=== PATIENT | female | born 1970 | race Caucasian/White ===

== ENCOUNTER 2017-04-27 10:04 | Inpatient (IN) | payer BC, SELFPAY ==
[~2017-04-27] VITALS: Ht 180.3 cm; Wt 154.7 kg
[~2017-04-27 10:04] MED LIST: CYCLOBENZAPRINE10 MG PO; HYDROCHLOROTHIA25 MG PO; INDOMETHACIN25 MG PO; PRAMIPEXOLE DIHY1 MG PO; TRAMADOL HCL50 MG PO; VALIUM5 MG PO
--- NOTE | 2017-04-27 17:38 | NUR ---
PT ARRIVED ON THE FLOOR FROM ER VIA STRETCHER. O2 IN PLACE AT 4L. TELE #3 PLACED, SINUS TACHY. PT AMBULATED TO BATHROOM. CONT PULSE OX. NO SKIN ISSUES NOTED. PT REPORTS PAIN IN LEFT HAND IV. PULSE OX INDICATES TACHY HR IN 130. BP 162/88. CALLED DR CHESTER, WHO WILL LOOK AT HOME MEDS AND REORDER.
--- NOTE | 2017-04-27 17:56 | NUR ---
CALLED, PT REQUESTING BREATHING TREATMENT. SAID "I WILL PUT THE ORDERS IN." RESPIRATORY THERAPY CALLED TO NOTIFY NOLA THAT PT AND RN WOULD LIKE HER TO HAVE A NEBULIZER TREATMENT SOON AVAILABLE
--- NOTE | 2017-04-27 19:02 | NUR ---
CALLED DR CHESTER D/T SUSTAINED HR OF 135-140. HOME HCTZ GIVEN. TYLENOL GIVEN FOR PAIN. O2 AT 4L TO KEEP O2 .90%. PT REPORTS CHRONIC BACK PAIN, TAKES TYLENOL AT HOME. PLAN OF CARE: MONITOR, DOES NOT WANT TO ADD A BETA CAROLA. IF PT DEVELOPS A FEVER GIVE TYLENOL. IF PAIN NOT RELIEVED BY TYLENOL, CALL DR CHESTER.
--- NOTE | 2017-04-27 20:11 | NUR ---
PT LAYING IN BED. TACHYPNEIC. PT O2 SAT STAYING AT 88% ON 4L VIA NC, PT SEEMS TO BE MOUTH BREATHING, PLACED ON OXYMASK, SATS WENT UP TO 93% CONSISTANTLY. HR NOW LOW 120'S. IV INFUSING WNL. PT RATES PAIN IN HER BACK AT 7/10, TYLENOL GIVEN EARLIER FOR PAIN, WILL GET PT KPACK FOR BETTER PAIN CONTROL. GAVE FRESH ICE WATER. ORIENTED TO CALL LIGHT. CALL LIGHT IN REACH. NO FURTHER NEEDS.
--- NOTE | 2017-04-27 20:37 | NUR ---
VITALS AND I&OS DONE AND CHARTED. HELPED PT TO THE BEDSIDE COMMODE AND TO THE CHAIR PER HER REQUEST. SHE SAYS THE BED IS HURTING HER. FRESH WATER GIVEN. PT NEEDS NOTHING ELSE AT THIS TIME.
--- NOTE | 2017-04-27 23:10 | NUR ---
PT SITTING UP IN CHAIR. BACK TO BED, STANDBY ASSIST, TOLERATED WELL. GAVE PUDDING PER PT REQUEST. NO FURTHER NEEDS AT THIS TIME. CALL LIGHT IN REACH.
--- NOTE | 2017-04-28 01:16 | NUR ---
PT APPEARS TO BE SLEEPING. HR 93, O2 SAT 92% ON 4L OXYMASK.
--- NOTE | 2017-04-28 01:44 | NUR ---
VITALS AND I&OS DONE AND CHARTED. HELPED PT TO THE BEDSIDE COMMODEAND BACK TO BED. PER PT REQUEST I CALLEDE ORLY TO GIVE HER A BREATHING TREATMENT. BEDSIDE TABLE AND CALL LIGHT WITHIN REACH. SHE NEEDS NOTHING ELSE AT THIS TIME.
--- NOTE | 2017-04-28 03:00 | NUR ---
PT AWAKE, LAYING IN BED, WATCHING TV. NO DISTRESS. NO COMPLAINTS. O2 SAT 93% ON 5L VIA OXYMASK. HR 100.
--- NOTE | 2017-04-28 06:46 | EKG ---
[facility] [address] [place] [id number] Signed Sinus tachycardia Rightward axis Low voltage QRS Borderline ECG No previous ECGs available Confirmed by XI CHESTER MD ([id number]) on 04/28/2017 6:46:21 AM Electronically Signed By: XI CHESTER MD 04/28/17 0646 PATIENT NAME: MICHELLE GHOTRA LISA Electrocardiogram DATE OF : 70 PHYSICIAN: XI CHESTER MD REPORT #: [id number] REPORT IS CONFIDENTIAL AND NOT TO BE RELEASED WITHOUT AUTHORIZATION
--- NOTE | 2017-04-28 07:48 | NUR ---
PATIENT IN BED EATING BREAKFAST. THIS PEDIATRIC GENETICIST BROUGHT APPLE JUICE. CALL LIGHT WITHIN REACH. NO OTHER NEEDS AT THIS TIME.
--- NOTE | 2017-04-28 08:09 | NUR ---
MORNING ASESMENT AND MEDICATIONS DUE. PT UP FINSIHING WITH BREAKFAST. O2 SATURATION NOTED TO BE AT 86%. PT HAS NC AT 6L RUNNING. OXY MASK REPLACED, 6L OS RUNNING. PT REQUESTS TO GET UP TO COMODE AND SIT IN CHAIR. PT PRE OXYGENATED AT 6L AND ACHIEVES 94%. PT DESTATS TO 80% DURING MOVEMENT. O2 INCREASED TO 10L BY OXYMASK. PT WEANED BACK TO 5L O2 AND IS MAINTAINING AT 90-92%. ASSESSMENT DONE. MEDICATIONS GIVEN. IV INFUSING LEVOFLOXACIN VIA IV PUMP. PT UP TO CHAIR. FEET ELEVATED. WARM BLANKET AND PILLOW PROVIDED FOR BACK. PT WATCHING TV. AND STATES NO ADDITIONAL REQUESTS OR COMPLAINTS AT THIS TIME.
--- NOTE | 2017-04-28 09:15 | NUR ---
IV ABX ARRIVED FROM PHARMACY. THIS RN TO ROOM TO GIVEN ABX. PT UP TO CHAIR. OCCATIONAL COUGHS NOTED. PT REQEUSTS A BREATHING TREATMENT. RT CALLED. BREATHING TREATMENT PULLED AND AT BEDSIDE FOR RT TO GIVE. ABX INFUSING VIA IV PUMP. PT STATE NO ADDITIONAL REQUESTS OR COMPLAINTS AT THIS TIME. CALL LIGTH WITHIN REACH.
--- NOTE | 2017-04-28 10:00 | NUR ---
STUDENT RN IN ROOM TO ASSIST WITH PATIENTS VITALS. STUDENT NURSE STATES SHE WILL ASSIST PAIENT WITH ORAL CARE AND WASHING HANDS AND FACE. STUDENT STATES THAT SHE WILL ASK PATIENT IF SHE WOULD LIKE TO HAVE A SHOWER OR BATH.
--- NOTE | 2017-04-28 10:13 | NUR ---
PATIENT RESTING IN CHAIR. CALL LIGHT WITHIN REACH. FRESH ICE WATER. PATIENT STATES THAT SHE IS UNCOMFORTABLE, BUT SAYS SHE HAS BEEN FOR A COUPLE DAYS. STUDENT NURSE IN ROOM. STUDENT NURSE STATED THAT SHE CHANGED THE LINEN. NO OTHER NEEDS AT THIS TIME.
--- NOTE | 2017-04-28 10:35 | NUR ---
THIS RN CALLED TO BEDSIDE BECAUSE POT HOLDER BINDER STATES "THE IV IS BAD." THIS RN NOTES THE INFUSION HAS BEEN STOPPED. PIV ASSESSED, INFILTRATION NOTED. PIV DC'D PER PROTOCOL. NEW IV STARTED PER PROTOCOL IN RIGHT FORARM. BRISK BLOOD RETURN NOTED WITH IV START. LINE INFUSING THE REMAINDER OF ABX INFUSION IV FLUIDS TO FOLLOW. PT REMAINS ON 7L O2 PER RT INTERVENTION. PT DENIES NEED FOR NICOTINE LOSENGE AT TIME AND STATES "THE RESTLESSNESS IS GETTING BETTER." PT WORKIGN ON PHONE RESTING IN CHAIR. PT WORKING ON PHONE. NO ADDITIONAL REQUESTS OR COMPLAINTS AT THIS TIME.
--- NOTE | 2017-04-28 11:17 | NUR ---
FOCUSSED ASSESSMENT DUE. PT UP IN CHAIR AND REPORTS "FEELING LIKE I AM BREATHIGN BETTER." PT REMAINS ON 7L O2 WITH 92% O2. PT REQUESTS VANILLA WAFFERS TO SNACK ON. ORDER CALLED TO CAFETERIA. FOCUSSED ASSESSMENT DONE. PT REPORTS ONGOING PAIN IN BACK BUT STATES "ITS TOLERABLE FOR NOW AND I DON'T NEED ANYTHING FOR IT." PT WATCHING TV WITH CALL LIGHT WITHIN REACH. WATER REFILLED. PT HAS NO ADDITIONAL REQUESTS OR COMPLAINTS AT THIS TIME.
--- NOTE | 2017-04-28 12:21 | NUR ---
THIS RN TO BEDSIDE TO REPLACE OXY MASK AFTER LUNCH. PT RESTING WITH EYES CLOSED, RR=20, O2 SATURATION NOTED TO BE 99%. PT AWAKENS TO VOICE. PT STATES SHE WOULD LIKE TO REMAIN ON THE NC IF POSSIBLE. PT LEFT WEANED. TO 6 L O2 NC. PT REMAINS AT 99% O2. PT RESTING IN CHAIR. FEET ELEVATED. CALL LIGHT WITIN REACH.
--- NOTE | 2017-04-28 12:48 | NUR ---
PATIENT RESTING IN BED WITH EYES CLOSED. PATIENT APPEARS TO BE SLEEPING. NO OTHER NEEDS AT THIS TIME.
--- NOTE | 2017-04-28 12:50 | NUR ---
PATIENT RESTING IN CHAIR WITH EYES CLOSED. PATIENT APPEARS TO BE SLEEPING. NO OTHER NEEDS AT THIS TIME.
--- NOTE | 2017-04-28 14:07 | NUR ---
PT SITTING IN CHAIR, RT IN GIVING BREATHING TREATMENT. PT MOTIONED ME IN, SAID AMARIS. STAYED JUST A MOMENT, WILL LET HER FINISH TREATMENT. EXTENDED A BLESSING, SHE THANKED ME, WILL FOLLOW NEEDED
--- NOTE | 2017-04-28 14:30 | NUR ---
PATIENT IS UP TO CHAIR, HUMIDIFICATION MASK IS ON, PER RT. SATURATIONS ARE 99 AND 100% AND PATIENT IS TOLERATEING WELL. HEAT PACK TO LOWER BACK.
--- NOTE | 2017-04-28 14:37 | NUR ---
PATIENT IS RESTING IN CHAIR. PATIENT STATES THAT SINCE SHE HAS HAD THE TENT MASK SHE FEELS MORE COMFORTABLE THAT PREVIOUSLY. PATIENTS FAMILY IN ROOM. RN IN ROOM. CALL LIGHT WITHIN REACH. NO OTHER NEEDS AT THIS TIME.
--- NOTE | 2017-04-28 15:02 | NUR ---
SET PATIENT UP FOR A BED BATH. PATIENTS DAUGHTER IS ASSISTING WITH BED BATH.
--- NOTE | 2017-04-28 15:51 | NUR ---
pump alarming "distal occlusion." piv assessed, wnl. BED RAILS UP. CALL LIGHT WITHIN REACH. PT VISITING WITH FRIENDS.
--- NOTE | 2017-04-28 17:08 | NUR ---
RN IN ROOM ASSISTING PATIENT. NO OTHER NEEDS AT THIS TIME.
--- NOTE | 2017-04-28 17:15 | NUR ---
AFTERNOON ASSESSEMENT DUE. PT UP WITH RN TO REST ROOM. OXYGEN OFF. OXYGEN REAPPLIED BY THIS RN. DINNER ARRIVED. ASSESSMENT DONE. MEDICATION GIVEN ORDERED (SEE MAR). PT SITTING ON EDGE OF BED EATING DINNER. O2 ON BY NC AT 6L. PT MAINTAINING O2 SATURATIONS ABOVE 92%. CALL LIGHT WITHIN REACH. FAMILY AT BEDSIDE.
--- NOTE | 2017-04-28 17:34 | NUR ---
PT HERE FOR PNUEMONA. STAND BY ASSIST. REGULAR DIET. GOOD INTAKE TODAY. PIV INFUSING NS AT 125ML/HR. PT REQUESTS PRN ALBUTEROL NEBS. RT CONSULT TODAY. RT INVOLVED WITH THERAPY. PT ON TELLY #3, NORMAL SINUS/ SINUS TACH TODAY. 6L O2 BY NC TODAY WEANED TO NC OFF OF OXY MASK. IV ABX ORDERED. PT DENIES NEED FOR PAIN MEDICATION OR NIOCTENE LOZENGE. GOOD USE OF CALL LIGHT.
--- NOTE | 2017-04-28 18:37 | NUR ---
PATIENT RESTING IN BED WATCHING TV. PATIENTS FAMILY MEMBER IN ROOM. PATIENT STATES THAT DINNER WAS NOT VERY GOOD AND SHE ORDERED A SANDWICH WHICH ARRIVED. PATIENT STATES THAT SHE IS STILL VERY COMFORTABLE AND NOT HAVING ANY BREATHING PROBLEMS OR FEELING DIZZY. FRESH ICE WATER. CALL LIGHT WITHIN REACH. NO OTHER NEEDS AT THIS TIME.
--- NOTE | 2017-04-28 19:46 | NUR ---
RECEIVED REPORT FROM DAY SHIFT RN. PATIENT IS RESTING IN BED WATCHING TV. PATIENT DENIES NAY NEEDS AT THIS TIME. CALL LIGHT IN REACH.
--- NOTE | 2017-04-28 21:02 | NUR ---
PATIENT ASSESMENT COMPLETED. PATIENTS EVENING MEDICATIONS GIVEN PER ORDER. PATIENT IS RESTING IN BED. PATIENT DENIES ANY PAIN. PATIENT DENIES ANY PAIN AT THIS TIME. PATIENT DENIES ANY SOB. PATIENT REMAINS ON 6L VIA NC. PATIENTS PULSE OX READINGS ARE WNL. PATIENTS ICE WATER REFILLED PER ORDER. PATIENT DENIES ANY FURTHER NEEDS AT THIS TIME. CALL LIGHT IN REACH.
--- NOTE | 2017-04-28 21:41 | NUR ---
REPLACED TELE LEAD ON PT. TURNED DOWN HEAT PER PT REQUEST. PT HAS NO FURTHER NEEDS AT THIS TIME. CALL LIGHT IN REACH.
--- NOTE | 2017-04-28 23:19 | NUR ---
PATIENT IS RESTING IN BED WITH EYES CLOSED. PATIENT PULSE OX READINGS ARE WNL. PATIENTS OXYGEN SATURATION IS 97%. PATIENT TITRATED DOWN TO 5L VIA NC. CALL LIGHT IN REACH.
--- NOTE | 2017-04-29 00:18 | NUR ---
PATIENTS PULSE OX WAS ALARMING. PATIENTS LEAD HAD FALLEN OFF OF HER FOREHEAD. PATIENTS LEAD REPLACED FOR PULSE OX. PATIENT REMAINS AT 94% ON 5L VIA NC. PATIENT DENIES ANY NEEDS AT THIS TIME. CALL LIGHT IN REACH.
--- NOTE | 2017-04-29 02:17 | NUR ---
PATIENT CALLED TO USE THE BATHROOM 1 PA STANDBY. PATIENT IS BACK IN BED. ICE WATER REFILLED. LIKES THE DOOR SHUT. NO OTHER NEEDS. CALL BUTTON WITHIN REACH.
--- NOTE | 2017-04-29 04:16 | NUR ---
PATIENT IS RESTING IN BED WITH EYES CLOSED. PATIENT REMAINS ON 5L VIA NC. PULSE OX READINGS ARE WNL. CALL LIGHT IN REACH.
--- NOTE | 2017-04-29 05:03 | NUR ---
PATIENT RESTED WELL THROUGHOUT THE SHIFT. PATIENT IS SL AND IV FLUSHES WELL. PATIENT HAS PULSE OX IN PLACE. PATIENT IS A SBA. PATIENT IS ON A REG DIET AND IS TOLERATING IT WELL. PAITENT IS ON 5L VIA NC. PATIENT IS ON TELE #3, SR. PATIENT RECEIVEING PRN NEBS. PATIENT IS AAOX3 AND USES CALL LIGHT APPROPRIATELY.
--- NOTE | 2017-04-29 05:39 | NUR ---
PATIENT IS RESTING IN BED. PATIENT IS CURRENTLY ON 5L VIA NC. PATIENTS PULSE OX READINGS ARE WNL. PATIENT DENIES ANY SOB. PATIENT DENIES ANY NEEDS AT THIS TIME. CALL LIGHT IN REACH.
--- NOTE | 2017-04-29 06:39 | NUR ---
PATIENT RECEIVED PRN TYELNOL FOR A HERNANDEZ. PATIENT IS ALSO REQUESTING A NEB TREATMENT. PLACED CALL TO RT.
--- NOTE | 2017-04-29 06:52 | NUR ---
RT IN RROM ADMINISTERING PRN NEB. PATIENT WAS TALKING ON THE PHONE WHEN THE ROOM WAS ENTERED. NO NEEDS NOTED. CALL LIGHT IN REACH.
--- NOTE | 2017-04-29 08:26 | NUR ---
PATIENT RESTING IN BED WATCHING TV. FRESH ICE WATER. CALL LIGHT WITHIN REACH. NO OTHER NEEDS AT THIS TIME.
--- NOTE | 2017-04-29 08:45 | NUR ---
PATIENT SITTING UP IN BED WATCHING TV. ORAL CARE DONE. THIS SHRINK PIT OPERATOR TALKED TO PATIENT ABOUT POSSIBLY SHOWERING THIS AFTERNOON WHEN HER DAUGHTER IS HERE TO ASSIST HER. PATIENT STATES THAT SHE IS FEELING BETTER THEN YESTERDAY. CALL BUTTON IN REACH. NO OTHER NEEDS AT THIS TIME.
[2017-04-29] MEDS ORDERED: VENTOLIN HFA18 GM INH (08:58)
[2017-04-29] MEDS ORDERED: CHANTIX1 EACH PO (09:00)
--- NOTE | 2017-04-29 09:40 | NUR ---
MORNING ASSESSMENT AND MEDICATIONS DUE. PT UP IN BED, FINISHED WITH BREAKFAST AND WATCHING TV. PT STATES "I CAN BREATH BETTER TODAY." O2 ON 5L NC. WEANED TO 4L NC. THIS RN MONITORS AND PT MAINTAINS BETWEEN 94% AND 97%. PT LEFT ON 4L NC. PIV ASSESSED AND INFILTRATION NOTED. NEW PIV STARTED PER PROTOCOL IN LEFT AC. INFUSING ABX VIA IV PUMP (SEE MAR). ASSESSEMENT DONE. MEDICAITONS GIVEN (SEE MAR). PT TALKING ON PHONE AND WATCHING TV. PT DENIES ADDITIONAL REQUESTS OR COMPLAINTS AT THIS TIME. BED RAILS UP. CALL LIGHT WITHIN REACH.
[2017-04-29] MEDS ORDERED: INDOMETHACIN50 MG PO (10:00)
[2017-04-29] MEDS ORDERED: MULTIVITAMINS1 EAC8 PO (10:01)
[2017-04-29] MEDS ORDERED: MUCOSA400 MG PO (10:01)
--- NOTE | 2017-04-29 10:02 | NUR ---
MED REC COMPLETE
--- NOTE | 2017-04-29 10:15 | NUR ---
THIS RN TO BEDSIDE TO CHECK ON PT. PT RETURNING FROM WORK WITH PT. PT BACK TO CHAIR. PT REPORTS 7/10 IMPROVING PAIN. PT DENIES NAUSEA AND REPORTS ITCHING IS IMPROVING. CRYO CUFF IN PLACE. PT READING. CALL LIGHT WITHIN REACH.
--- NOTE | 2017-04-29 10:18 | NUR ---
INTO PATIENT ROOM TO ROUND AND ASSESS PATIENT, MD DISCUSSED PLAN OF CARE.
--- NOTE | 2017-04-29 10:30 | NUR ---
PATIENT RESTING IN BED. FRESH ICE WATER. CALL LIGHT WITHIN REACH. NO OTHER NEEDS AT THIS TIME.
--- NOTE | 2017-04-29 11:00 | NUR ---
NEW MEDICATION ORDERS. MEDICATIONS GIVEN ORDERED (SEE MAR). SIDE EFFECTS AND NEW MEDICATIONS EXPLAINTED TO PT. PIV INFUSING NS AT TKO. ABX FINISHED INFUSING. SPUTEUM CUP GIVEN TO PT WITH DIRECTIONS TO SPIT HER COUGH PHLEM INTO CUP AND NOTIFY RN. PT VERBALIZES UNDERSTANDING WORKING ON TABLET AND WATCHING TV. PT STATES IMPROVED HEADACHE AND BACK PAIN NOW AT 0/10. PT STATES NO REQUESTS OR COMPLAINTS AT THIS TIME. BED RAILS UP. CALL LIGHT WITHIN REACH.
--- NOTE | 2017-04-29 12:20 | NUR ---
THIS RN TO BEDSIDE FOR FOCUSED ASSESSMENT. PT COUGHING ON AND OFF. HAS MAINTAINED O2 SATURATION ABOE 94% ALL MORNING. PT WEANED TO 3 L O2 WHILE THIS RN STAYS IN ROOM. PT MAINTAING O2 SATURATIONS ABOVE 94%. PT LEFT ON 3 L. FOCUSSSED ASSESSMENT DONE. PT STATES NO REQUESTS OR COMPLAINTS AT THIS TIME. PT ADVISED TO GET UP TO CHAIR TODAY. PT DECLINES STATING "I'M JUST SO COMFORTABLE WHERE I AM." PT WATCHING TV. BED RAILS UP. CALL LIGHT WITHIN REACH.
--- NOTE | 2017-04-29 13:17 | NUR ---
PT RESTING IN BE, OXYGEN ON 3L N.C., OXYGEN SATURATION PER CONTINUOUS PULSE OXIMETRY IS 92% AT THIS TIME. NO DISTRESS NOTED, RESPIRATORY THERAPIST IN ROOM FOR PROVIDE TREATMENTS AT THIS TIME.
--- NOTE | 2017-04-29 13:33 | NUR ---
PT CALL LIGHT ON. PT REQUESTS ASSISTANCE UP TO RESTROOM. PT ASSISTED NEEDED. PT VOIDS WITHOUT ISSUE AND THEN TRANSFERES SELF TO CHAIR. PT TALKING SMOOTHLY. DENIES SOB WITH TRANSFERES. PT REMAINS ON 3L O2 WITH O2 SATURATIONS ABOVE 92%. PT REQUESTS A SNACK. ORDER CALLED TO DIETARY. WARM BLANKETS PROVIDED. SHOWER OFFERED. PT DECLINES STATING "I'M WAITING FOR MY DAUGHTER TO GET HERE." PT WATCHING TV. CALL LIGHT AND BELONGING WITHIN REACH.
--- NOTE | 2017-04-29 13:56 | NUR ---
PATIENT RESTING IN CHAIR WATCHING TV AND EATING SOME FOOD. PATIENT STATES SHE HAS NO PAIN. PATIENT STATES THAT HER FINGERS ARE A LITTLE SWOLLEN AND IS CONCERNED. THIS MAKEUP ARTIST TOLD RN AND RN CAME IN TO LOOK. NO OTHER SWELLING ON FEET. FRESH ICE WATER. LINEN CHANGED. CALL LIGHT WITHIN REACH. NO OTHER NEEDS AT THIS TIME.
--- NOTE | 2017-04-29 14:21 | NUR ---
PT SITTING UP IN BED, WATCHING TV. PT MENTIONED SHE FEELS SO MUCH BETTER TODAY THAN YESTERDAY. ADMITTED SHE WAS RATHER FRIGHTENED TO JUST HOW BAD SHE WAS FEELING. GOOD VISIT WITH PT, WORRIED THOUGH ABOUT GETTING BACK TO WORK. SHE HAS NO TIME OFF, AND IS GETTING THIS SUMMER. PT BEGAN TO SHARE SOME OF HER LIFE WITH ME, REQUESTED PRAYER. WILL CONTINUE TO FOLLOW
--- NOTE | 2017-04-29 16:11 | NUR ---
AFTERNOON ASSESSMENT DUE. THIS RN TO BEDSIDE. PT TALKING ON PHONE. NO SOB NOTED. PT REQUESTS TO GET UP TO RESTROOM. O2 NOTED TO BE 89-90%. PT 02 INCREASED TO 4L FOR TRANSFER TO REST ROOM. PT BACK TO BED. ASSESSEMNT DONE. RT AT BEDSIDE GIVING BREATHING TREATMENT. PT PARTICIPATING IN CARE. BED RAILS UP. CALL LIGHT WITHIN REACH.
--- NOTE | 2017-04-29 17:09 | NUR ---
ABX DUE. PT WATCHING TV. FINISHED WITH DINNER. ABX GIVEN ORDERED. NO REQUESTS OR COMPLAINTS AT THIS TIME. BED RAILS UP. CALL LIGHT WITHIN REACH.
--- NOTE | 2017-04-29 17:29 | NUR ---
PATIENT RESTING IN BED WATCHING TV. REMOVED THE TELE. CALL LIGHT WITHIN REACH. NO OTHER NEEDS AT THIS TIME.
--- NOTE | 2017-04-29 17:41 | NUR ---
PT HERE FOR PNEUMONIA. STAND BY ASSIST. REGULAR DIET. LAST BM 04/28/17. IMPROVED LUNG SOUNDS TODAY. PT WEANED TO 3-4L O2 WITH O2 STATS MAINTAINED ABOVE 92%. NEW PIV IN LEFT AC, TKO RATE TO MAINTAIN IV. SOLUMEDROL GIVEN TODAY. RT THERAPIES GIVEN. PT TOLERATED WELL. IV ABX. GOOD I/O'S.
--- NOTE | 2017-04-29 19:05 | NUR ---
RECEIVED REPORT FROM DAY SHIFT RN. PATIENT IS RESTING IN BED WITH VISITORS IN THE ROOM. PATIENT DENIES ANY NEEDS. CALL LIGHT IN REACH.
--- NOTE | 2017-04-29 20:06 | NUR ---
PATIENT CALLED TO USE THE BATHROOM THEN TAKE SHOWER WITH THE HELP OF HER DAUGHTER. IV SITE WRAPPED. TOWELS PROVIDED. PATIENT STATED THE BED LINEN ALREADY CHANGED BY THE DAY SHIFT.
--- NOTE | 2017-04-29 21:25 | NUR ---
PATIENT ASSESMENT COMPLETED. PATIENTS EVENING MEDICATION GIVEN PER ORDER. PATIENT COMPLAINS OF A HEADACHE. PATIENT HAS SCHEDULED INODIN. PATIENT STATED "THAT WILL HELP ME HEADACHE, IT USUALLY DOES" PATIENT DENIES THE NEED FOR ADDITIONAL MEDICATION FOR HEADAHCE AT THIS TIME. PATIENT IS RESTING IN BED VISITING WITH FAMILY. PATIENT IS ON 4L VIA NC. PATIENT IS ON CONTINUOUS PULSE OX AND READINGS ARE WNL. PATIENT DENIES ANY SOB. PATIENT DENIES ANY FURTHER NEEDS CALL LIGHT IN REACH.
--- NOTE | 2017-04-29 22:45 | NUR ---
PATIENT ASSISTED TO THE RESTROOM A SBA. PATIENT IS STEADY ON HER FEET. PATIENT DENIES ANY SOB. PATIENT IS BACK IN BED RESTING. PATIENT REMAINS ON 4L VIA NC. PATIENT IS REQUESTING TYLENOL FOR A HEADAHCE. PATIENT GIVEN PRN TYLENOL FOR A HEADACHE. NO FURTHER NEEDS NOTED. CALL LIGHT IN REACH.
--- NOTE | 2017-04-30 00:08 | NUR ---
PATIENT IS RESTING IN BED WITH EYES CLOSED. PULSE OX READINGS ARE WNL. RT TO FLOOR TO CHECK ON PATIENT. NO NEB GIVEN PATIENT APPEARS TO BE SLEEPING. CALL LIGHT IN REACH OF PATIENT
--- NOTE | 2017-04-30 02:53 | NUR ---
PATIENT AWOKE WHEN ROOM WAS ENTERED. PATIENT DENIES ANY NEEDS AT THIS TIME. CALL LIGHT IN REACH. PATIENT GIVEN WARM PACK FOR PAIN IN NECK. NO FURTHER NEEDS NOTED.
--- NOTE | 2017-04-30 04:13 | NUR ---
PATIENT GIVEN PRN TYLENOL FOR A HEADACHE. RT IN THE ROOM ADMINISTERING SCHEDULED NEB. PATIENT DENIES ANY FURTHER NEEDS. CALL LIGHT IN REACH.
--- NOTE | 2017-04-30 05:13 | NUR ---
PATIENT RESTED WELL THROUGHOUT THE SHIFT. PATIENT IS SL AND IV FLUSHES WELL. PATIENT HAS PULSE OX IN PLACE. PATIENT IS A SBA. PATIENT IS ON A REG DIET AN IS TOLERATING IT WELL. PAITENT IS ON 3L VIA NC. PATIENT HAS SCHEDULED NEB. PATIENT RECEIVED PRN TYELNOL X2 FOR A HEADACHE AND NECK MAKENZIE. PATIENT IS AAOX3 AND USES CALL LIGHT APPROPRIATELY.
--- NOTE | 2017-04-30 06:08 | NUR ---
PATIENT IS RESTING IN BED WITH EYES CLOSED. PATIENT REMAINS ON 3L VIA NC. PULSE OX READINGS ARE WNL. CALL LIGHT IN REACH.
--- NOTE | 2017-04-30 07:38 | NUR ---
ASSESSMENT COMPLETE. ASSISTED WITH IS. AIR INHALED TO 2,000 ML X2. ICE WATER GIVEN. NO C/O AT THIS TIME. CALL LIGHT IN REACH. 0817-PT ATE 75% OF BREAKFAST INDEPENDENTLY WITHOUT ANY DIFFICULTY.ASSISTED PT TO BATHROOM WITH STANDBY ASSIST. PATIENT TOLERATED WELL. AMBULATES & TRANSFERS INDEPENDENTLY. PT VOIDED 500ML OF CLEAR, [place] COLOR URINE. PATIENT ASSISTED BACK TO BED. NO C/O AT THIS TIME. CALL LIGHT IN REACH. PT ENCOURAGED TO SIT IN CHAIR, REFUSES AT THIS TIME. 0900-ASSISTED PATIENT WITH IS. PATIENT ABLE TO GET TO 2,000 ML OF AIR X3 REPS REASSESSED LUNGS WHEEZES THROUGHOUT ALL LOBES BILATERALLY. NO C/O AT THIS TIME. CALL LIGHT IN REACH. 0950-MORNING MEDICATIONS GIVEN. PT TOLERATED WELL. RN IN ROOM TO DO ASSESSEMNT. ASSISTED WITH IS 2,000 ML OF AIR X2 REPS. WATER REFILLED. NO C/O AT THIS TIME. CALL LIGHT IN REACH. PT REMAINS IN BED.
--- NOTE | 2017-04-30 10:33 | NUR ---
ASSISTED PATIENT TO CHAIR WITH STAND BY ASSIST. PATIENT AMBULATED INDEPENTLY IN ROOM, PATIENT 02 SAT TO 88%, INCREASED OXYGEN TO 4 L PER NC. 02 SATURATION TO 92% IN 1-2 MINUTES ON 4 L PER NC. ASSISTED PATIENT WITH IS. AIR INHALED TO 2250 ML X3 REPS. CALL LIGHT IN REACHL. NO C/O AT THIS TIME. PATIENT REMAINS ON 4 L PER NC.
--- NOTE | 2017-04-30 12:44 | NUR ---
ASSISTED PATIENT WITH WALKING STAND BY ASSIST. PT AMBULATES INDEPENDENTLY. PATIENT AMBULATED 100FT. DURING AMBULATION O2 SATURATION 87% OXYGEN INCREASED TO 6 L PER NC FROM 4 L NC. ON 6 L NC FOR 5 MINUTES. PATIENT AMBULATED BACK TO CHAIR. O2 SATURATION 90% TITRATED O2 DOWN TO 5 L PER NC 1-2 MINUTES. O2 SATURATION 92% TITRATED O2 TO 4 L PER NC O2 SATURATION 91%. ICE WATER GIVEN. RT IN ROOM TALKING ABOUT SMOKING CESSATION. PATIENT DENIES C/O AT THIS TIME. CALL LIGHT IN REACH.
--- NOTE | 2017-04-30 13:50 | NUR ---
ASSISTED PATIENT WITH IS. PATIENT INHALED 2,000 ML OF AIR X3 REPS. 1400 VITALS TAKEN. CE WATER GIVEN. PT DENIES C/O AT THIS TIME. CALL LIGHT IN REACH.
--- NOTE | 2017-04-30 14:35 | NUR ---
1400 MEDICATIONS GIVEN. PATIENT ABLE TO TAKE MEDICATIONS INDEPENDENTLY WITHOUT DIFFICULTY. ASSISTED PATIENT WITH IS. INHALED 2,000 ML OF AIR X 3 REPS. REASSESSED LUNGS WHEEZES IN RIGHT LOWER LOBE. PATIENT CALL LIGHT IN REACH. PATIENT DENIES C/O AT THIS TIME.
--- NOTE | 2017-04-30 15:03 | NUR ---
PATIENT WENT FOR A WALK AROUND THE MED/SURG UNIT WITH HER 4L/NC ON AND DID VERY WELL. PATIENT BACK IN BED AFTER HER WALK AND TURNED DOWN TO 3L/NC. PATIENT NEEDED NOTHING ELSE AT THIS TIME.
--- NOTE | 2017-04-30 17:03 | NUR ---
PATIENT ATE A GOOD DINNER AND HAD HER EVENING MEDS. NO C/O PAIN OR DISTRESS. SHE HAD A GOOD WALK AROUND THE UNIT X2. REMAINS ON 3 LITERS/NC AND KVO NS TO KEEP IV OPEN. PATIENT MAY GO HOME TOMORROW.
--- NOTE | 2017-04-30 19:32 | NUR ---
c/o h/a, medicated with tylenol 650mg, watching tv, neck roll given too, and ice water, no other requets
--- NOTE | 2017-04-30 21:12 | NUR ---
ROUNDED PAID SEARCH MARKETING ANALYST. PATIENT IS RESTING IN BED WATCHING TV. PATIENT COMPLAINS OF A HEADACHE. WILL PASS ON TO [facility].
--- NOTE | 2017-04-30 21:15 | NUR ---
VITALS AND I&OS DONE AND CHARTED. BEDSIDE TABLE AND CALL LIGHT WITHIN REACH. FRESH WATER GIVEN. PT NEEDS NOTHING ELSE AT THIS TIME.
--- NOTE | 2017-04-30 21:19 | NUR ---
PT C/O NO RELIEF FROM TYLENOL GIVEN EARLIER. DR WRIGHT NOTIFIED VIA PHONE, NEW ORDERS OBTAINED
--- NOTE | 2017-04-30 21:38 | NUR ---
MEDICATED WTIH VISTARIL 25MG PO AND 1 5/325MG NORCO TAB PER C/O INSOMNIA AND PAIN. WATCHING TV. COOP WITH ASSESSMENT, NO N/V
--- NOTE | 2017-04-30 23:21 | NUR ---
EYES CLOSED, NO RESP DISTRESS, AWAKENS EASILY, MILD RELIEF STATED FROM MEDS GIVEN EARLIER
--- NOTE | 2017-05-01 01:57 | NUR ---
Resting, eyes closed, no respiratory distress. Turns self in bed. O2 in place, Cont pulse ox sats 92%, P92, R16
--- NOTE | 2017-05-01 05:38 | NUR ---
Pt c/o no relief from Tylenol 650mg earlier in the shift. Dr Grey was notified, n.o for Vistaril 25mg and one time Miles 5/325mg give. Relief stated, pt able to sleep from 2300 to 0515. c/o h/a at this time, medicated again with Tylenol 650mg. Up to brp with one sba, O2 2L/NC in place. Cont pulse ox sats readings 95%. No c/o sob at this time. Lungs continues to have fine crakles this am. Currently awake, watching tv and tolerating liquids w/o problems.
--- NOTE | 2017-05-01 06:24 | NUR ---
no further c/o h/a, resting, eyes closed, awakens easily
--- NOTE | 2017-05-01 07:03 | NUR ---
HANDOFF REPORT RECEIVED FROM LIVE SOURCE OPERATOR RN, PT SLEEPING, LEFT UNDISTURBED.
--- NOTE | 2017-05-01 07:17 | NUR ---
PT'S RN NILDA EXPRESSED TO ME HIS CONCERN OVER PT NOT BEING VERY MOTIVATED TO DO HER PART TO RECOVER. SHE NEEDS TO WALK, HAS NOT WALKED ENOUGH. I WAS ABLE TO VISIT WITH PT-SHE WAS IN CHAIR ALERT AND ORIENTED. SHE EXPRESSED THAT SHE WAS READY TO GO HOME, O2 NASAL CANDULA HANGING AROUND HER NECK. SHE SEEMED UPBEAT. I ASKED HER IF SHE HAD WALKED, SHE SAID SHE NEEDED TO GET UP AND GET GOING. I TOLD HER I WOULD GET HER THE RN, AND THEY COULD GO FOR A WALK. PT MENTIONED THAT SHE EVEN HAD HER WALKING SHOES ON. PT REQUESTED PRAYER, THANKED ME FOR COMING IN AND SAID SHE WAS "READY"! WILL CONTINUE TO FOLLOW
--- NOTE | 2017-05-01 07:55 | NUR ---
PT SITTING UP IN BED DOING BREATHING TREATMENT, RESP IN ROOM. EMPTIED TRASH, SET UP FOR AM CARE, PATIENT BUSY READING HER PHONE.
--- NOTE | 2017-05-01 08:30 | NUR ---
PT RESTING IN BED. O2 SATS 93%, WEANED TO 1L NC, CONTINUOUS PULSE OX IN PLACE, LUNG SOUNDS WITH EXPIRATORY WHEEZE TO LEFT UPPER, DIMINIHSED BASES, NONPRODUCTIVE COUGH. IV FLUIDS INFUSING TKO. PT TOELRATING REGULAR DIET, DENIES NAUSEA. PT COMPLAINT OF HEADACHE, STATES TYLENOL WAS NOT EFFECTIVE, ENCOURAGED TO DRINK WATER. CM INTACT, WITHOUT EDEMA. DISCUSSED PLAN OF CARE FOR THE DAY, PT STATES SHE FEELS READY TO GO HOME. PT DENIES OTHER NEEDS AT THIS TIME.
[2017-05-01] MEDS ORDERED: CEFPODOXIME PR200 MG PO (09:40)
[2017-05-01] MEDS ORDERED: COMBIVENT RESPIM4 GM INH (09:43)
[2017-05-01] MEDS ORDERED: PREDNISONE20 MG PO (09:46)
--- NOTE | 2017-05-01 09:46 | NUR ---
MD TO BEDSIDE TO EVALUATE PT, DISCUSSED PLAN FOR DISCHARGE TODAY. PT O2 SATS 93% ON 1L NC, WEANED TO ROOM AIR. DISCUSSED WALKING IN [place] FOR HOME O2 EVAL. PT SALINE LOCKED. PT DENIES OTHER NEEDS AT THIS TIME.
--- NOTE | 2017-05-01 10:00 | NUR ---
PT ASSISTED TO WALK IN [place], SPO2 MONITOR NOT GETTIGN ACCURATE READING DUE TO ARTIFICIAL NAILS, FOREHEAD PROBE READING 90-91% ON ROOM AIR WHILE FINGER PROBE READING 83-84%. DISCUSSED WITH OPTICAL ASSISTANT AND MD, PLAN TO REWALK PT AT 1045 WITH PORTABLE FOREHEAD PROBE.
--- NOTE | 2017-05-01 11:09 | NUR ---
PT RESTING IN BED, EYES CLOSED. VITALS,I/OS DONE. ASSIST PT DRESSED FOR HOME, PT WORE NASAL CANULA WELL. THIS HABILITATIVE INTERVENTIONIST GATHERED PT BELONGINGS MISSY PABLO IN ROOM. NO OHTER NEEDS.
--- NOTE | 2017-05-01 11:26 | NUR ---
FAXED CHART NOTES TO [facility] FOR HOME O2 INCLUDING FACESHEET, ORDER, RT HOME O2 QUALIFIER, ER NOTES, H AND P, PROG NOTES, DC SUMMARY AND PACKET. ALSO SPOKE WITH JOLEEN ABOUT THIS.
--- NOTE | 2017-05-01 11:30 | NUR ---
RECIEVED FAX CONFIRMATION OF [facility] RECIEVING THE FAX.
--- NOTE | 2017-05-01 11:43 | NUR ---
PATIENT RESTING BED, EYES CLOSED. VITALS,I/OS DONE. PATIENT WILL DRESS SOON FOR DC. CALL LIGHT IN REACH.
--- NOTE | 2017-05-01 14:30 | NUR ---
PT LAYING IN BED, BIG SMILE ON HER FACE. SHE IS WAITING FOR HER RIDE HOME. SHE STATED SHE IS READY TO DO WHAT SHE NEEDS TO GET HEALTHY AND RETURN TO WORK. I EXTENDED A BLESSING WILL FOLLOW NEEDED
== END 2017-05-01 13:10 | disposition home or self-care (01) | DRG 189 ==
LOC: ED 10:04 → MS 16:02
PROVIDERS: ADMIT Internal Medicine
DX: J96.01 Acute respiratory failure with hypoxia (principal); J18.9 Pneumonia, unspecified organism; J44.0 Chronic obstructive pulmonary disease with (acute) lower respiratory infection; J44.1 Chronic obstructive pulmonary disease with (acute) exacerbation; Z68.42 Body mass index [BMI] 45.0-49.9, adult; F17.210 Nicotine dependence, cigarettes, uncomplicated; I10 Essential (primary) hypertension; E66.01 Morbid (severe) obesity due to excess calories; Z99.81 Dependence on supplemental oxygen; Z88.0 Allergy status to penicillin; Z79.52 Long term (current) use of systemic steroids; M19.90 Unspecified osteoarthritis, unspecified site
CPT/HCPCS: 36415; 71045; 71260; 80048; 80053; 83605; 84484; 84703; 85025; 85379; 87040; 87070; 87205; 87502; 93005; 93010; 94640; 94668; 94761; 94762; 94799; 96374; 99285; 99406; 99407; J0456; J0696; J1650; J1956; J2930; J7030; J7050; Q0177; Q9967

== ENCOUNTER 2017-07-20 08:39 | Emergency (ER) | payer BC, SELFPAY ==
[~2017-07-20] VITALS: Ht 180.3 cm; Wt 15483.4 kg
[~2017-07-20 08:39] MED LIST changes: +CEFPODOXIME PR200 MG PO; +CHANTIX1 EACH PO; +COMBIVENT RESPIM4 GM INH; +INDOMETHACIN50 MG PO; +MUCOSA400 MG PO; +MULTIVITAMINS1 EAC8 PO; +PREDNISONE20 MG PO; +VENTOLIN HFA18 GM INH
== END 2017-07-20 09:45 | disposition home or self-care (01) ==
LOC: ED 08:39
DX: L40.9 Psoriasis, unspecified (principal); Z87.891 Personal history of nicotine dependence; Z88.0 Allergy status to penicillin; Z79.899 Other long term (current) drug therapy
CPT/HCPCS: 99282

== ENCOUNTER 2024-05-08 23:06 | Emergency (ER) | payer OTHER ==
[~2024-05-08] VITALS: Ht 180.3 cm; Wt 165.0 kg
[~2024-05-08 23:06] MED LIST changes: +ADVAIR HFA 115-12 GM INH; +CLOBETASOL PROP15 GM TOP; +COZAAR25 MG PO; +FUROSEMIDE40 MG PO; +HYDROCODON-ACE1 EA10 PO; +METFORMIN HCL500 M1 PO; +MIRAPEX1 MG PO; +OMEPRAZOLE20 MG PO; +PROAIR DIGIHAL90 MCG; +SPIRIVA RESPIMAT4 GM INH; +TRULICITY0.75 MG/0. SUB-Q
--- OUTSIDE RECORDS SUMMARY | 2024-05-08 23:13 | XMS ---
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 E.[facility] VISIT COUNT (12 MO.) 1 [facility] [place] TOTAL 1 NOTE: Visits indicate total known visits. ED/UCC VISIT TRACKING (12 MO.) 05/08/2024 23:07 [facility] [place] TYPE: Emergency COMPLAINT: - KNEE PAIN INPATIENT VISIT TRACKING (12 MO.) No inpatient visits to display in this time frame [email or web address]
[2024-05-09] MEDS ORDERED: CYCLOBENZAPRINE10 MG PO (00:56)
[2024-05-09] MEDS ORDERED: CYCLOBENZAPRINE HCL 10 MG HOME.PACK PO ONE (01:00)
[2024-05-09] MEDS ORDERED: methylPREDNISolone 4 MG HOME.PACK PO ONE (01:00)
[2024-05-09 01:21] VITALS: BP 114/74
[2024-05-09] MEDS ORDERED: OZEMPIC2 MG/0.75 (01:24)
== END 2024-05-09 01:25 | disposition home or self-care (01) ==
LOC: ED 23:06
DX: G89.29 Other chronic pain (principal); M25.562 Pain in left knee; M25.561 Pain in right knee; E11.9 Type 2 diabetes mellitus without complications; Z79.51 Long term (current) use of inhaled steroids; Z79.899 Other long term (current) drug therapy; Z88.0 Allergy status to penicillin; Z87.891 Personal history of nicotine dependence
CPT/HCPCS: 99283